=== PATIENT | female | born 1975 | race Caucasian/White ===

== ENCOUNTER 2017-04-07 13:45 | Emergency (ER) | payer SELFPAY ==
[2017-04-07] MEDS ORDERED: IBUPROFEN 600 MG TAB PO ONE (15:32)
[2017-04-07 15:39] LABS: % IMMATURE GRANULYOCYTES 0.6 % (0.0-1.1); ABSOLUTE IMMATURE GRANULOCYTES 0.09 10^3/uL (0.00-0.10); ADD DIFF? NO; ADD MORPH? NO; ADD SCAN? NO; ATYPICAL LYMPHOCYTE FLAG 0 (0-99); FRAGMENT RBC FLAG 0 (0-99); HEMATOCRIT 39.5 % (38.0-47.0); HEMOGLOBIN 13.4 g/dL (12.6-16.3); LEFT SHIFT FLG 0 (0-99); LIPEMIA HEMOLYSIS FLAG 90 (0-99); MEAN CELL HEMOGLOBIN 28.3 pg (27.9-34.1); MEAN CELL HEMOGLOBIN CONCENTR. 33.9 g/dL (32.4-36.7); MEAN CELL VOLUME 83.5 fL (81.5-99.8); PLATELET CLUMPS FLAG 10 (0-99); PLATELET COUNT 292 10^3/uL (150-400); RED BLOOD CELL COUNT 4.73 10^6/uL (4.18-5.33); RED CELL DISTRIBUTION WIDTH 14.9 % (11.5-15.2)
--- NOTE | 2017-04-07 15:46 | EDPHY ---
H & P Stated Complaint: PD found pt breaking into cars & not making sense. Danger to self. M1. Source: Patient Exam Limitations: No limitations - Personal History LMP (Females 10-55): Hysterectomy Current Tetanus/Diphtheria Vaccine: Unsure Current Tetanus Diphtheria and Acellular Pertussis (TDAP): Unsure - Medical/Surgical History Hx Asthma: No Hx Chronic Respiratory Disease: No Hx Diabetes: No Hx Cardiac Disease: No Hx Renal Disease: No Hx Cirrhosis: No Hx Alcoholism: No Hx HIV/AIDS: No Hx Splenectomy or Spleen Trauma: No Other PMH: anxiety, PTSD - Social History Smoking Status: Former smoker Time Seen by Provider: 04/07/17 15:11 HPI/ROS: HPI: This is a 41-year-old female presents with Chief Complaint: PD found pt breaking into cars & not making sense. Danger to self. M1. Location:psych Quality: M1 Hold Duration: Today Signs and Symptoms: Denies suicidal ideation, denies homicidal ideation, denies hallucinations Timing: Unknown Severity: Moderate Context: Patient presents via [facility] Police on M1 hold at 12:09 p.m. as officer was dispatched for a woman getting into cars that were not hers. When the police arrived on scene, the woman had no ID, she stated that her name was Shayy Gonzalez. Date of was 1975. She said she saw signs that told her to come to the area, which meant "through love." She admits to me using alcohol as well as well as multiple recreational drugs but will not disclose the exact names. She states that she has been on a binge for the last several weeks. She is unsure of the date or time. She reports that she has a history of posttraumatic stress disorder and major depression but has not been on any medications in a long time. She reports that 1 time she was on Prozac 80 mg and clonazepam 1 mg. She is originally from [facility]. Modifying Factors: Comment: ROS: see HPI Constitutional: No fever, no chills, no weight loss Eyes: No blurred vision Respiratory: No shortness of breath, no cough Cardiovascular: No chest pain Gastrointestinal: No nausea, no vomiting, no diarrhea Genitourinary: No dysuria Extremities: No myalgias Neurologic: No weakness, no numbness Skin: No rashes Hematologic: No bruising, no bleeding MEDICAL/SURGICAL/SOCIAL HISTORY: Medical history: PTSD, major depression. Surgical history: Cholecystectomy, laparoscopic hysterectomy Social history: Unemployed. CONSTITUTIONAL: Untidy, cooperative adult white woman awake and alert, no obvious distress HEENT: Atraumatic and normocephalic, PERRL, EOMI. Tympanic membranes clear. Oropharynx clear, no exudate and moist pink mucosa. Airway patent. No lymphadenopathy. No meningismus. Cardiovascular: Normal S1/S2, regular rate, regular rhythm, without murmur rub or gallop. PULMONARY/CHEST: Symmetrical and nontender. Clear to auscultation bilaterally. Good air movement. No accessory muscle usage. ABDOMEN: Soft, nondistended, nontender, no rebound, no guarding, no peritoneal signs, no masses or organomegaly. No CVAT. EXTREMITIES: 2/2 pulses, no deformities, no clubbing, no cyanosis or edema. NEUROLOGICAL: no focal neuro deficits. GCS 15. Patient has very poor short- term and long-term memory. SKIN: Warm and dry, no erythema. no rash. Good capillary refill. PSYCH: Poor eye contact, no flight of ideas, organized thought process, poor insight and judgment, no auditory and visual command hallucinations, no suicidal ideation with a plan, no homicidal ideation, not paranoid (Cassia Carter) Constitutional: Initial Vital Signs Temperature (C) 37.2 C 04/07/17 13:51 Heart Rate 132 H 04/07/17 13:51 Respiratory Rate 16 04/07/17 13:51 Blood Pressure 133/59 H 04/07/17 13:51 O2 Sat (%) 94 04/07/17 13:51 O2 Delivery Mode Room Air Allergies/Adverse Reactions: No Known Allergies Allergy (Unverified 04/07/17 13:50) Home Medications: Medication Instructions Recorded Klonopin 04/07/17 Prozac 40 mg 04/07/17 Medical Decision Making ED Course/Re-evaluation: urine, labs ordered 1209: M1 Hold 1630: labs reviewed and UDS + amphetamines. will need to hold for 12 hours and re-evaluate. End of shift signed out to Dr. Mckinley. (Cassia Carter) 10:30 p.m. we continue to await psychiatric evaluation. Care transferred to Dr. Paul Quinonez shift change. (Tera Mckinley) [id number]: Patient has been evaluated by mental health. She has, cooperative. She is not acutely psychotic. She was positive for amphetamine. She was seen evaluated by mental health [facility]. They have vacated her M1 hold. She does not meet inpatient psychiatric criteria. She is not suicidal. She does not want hurt herself or anybody else. She admits to a 4 day binge of methamphetamine. Patient is acting appropriately should be discharged from the emergency room. Return precautions have been given. (Paul Quinonez) Differential Diagnosis: Altered mental status including but not limited to hypoglycemia, infectious process, electrolyte abnormality, head injury and intoxicants. (Cassia Carter) - Data Points Laboratory Results: Laboratory Results 04/07/17 15:20 04/07/17 15:20 04/07/17 04/07/17 04/07/17 15:45 15:20 15:20 WBC RBC Hgb Hct MCV MCH MCHC RDW Plt Count MPV Neut % (Auto) Lymph % (Auto) [place] % (Auto) Eos % (Auto) Baso % (Auto) Nucleat RBC Rel Count Absolute Neuts (auto) Absolute Lymphs (auto) Absolute Monos (auto) Absolute Eos (auto) Absolute Basos (auto) Absolute Nucleated RBC Immature Gran % Immature Gran # Sodium 139 mEq/L mEq/L (134-144) Potassium 4.1 mEq/L mEq/L (3.5-5.2) Chloride 101 mEq/L mEq/L (97-110) Carbon Dioxide 17 mEq/l L mEq/l (22-31) Anion Gap 21 mEq/L H mEq/L (8-16) BUN 17 mg/dL mg/dL (7-23) Creatinine 0.9 mg/dL mg/dL (0.6-1.0) Estimated GFR > 60 Glucose 60 mg/dL L mg/dL (70-100) Calcium 10.7 mg/dL H mg/dL (8.5-10.4) Phosphorus 4.7 mg/dL H mg/dL (2.5-4.5) Beta HCG, Qual NEGATIVE Salicylates < 1.0 mg/dL L mg/dL (2.0-20.0) Urine Opiates Screen NEGATIVE (NEGATIVE) Acetaminophen < 10 mcg/mL L mcg/mL (10-30) Urine Barbiturates NEGATIVE (NEGATIVE) Ur Phencyclidine Scrn NEGATIVE (NEGATIVE) Ur Amphetamine Screen NON-NEGATIVE H (NEGATIVE) U Benzodiazepines Scrn NEGATIVE (NEGATIVE) Urine Cocaine Screen NEGATIVE (NEGATIVE) U Marijuana (THC) Screen NEGATIVE (NEGATIVE) Ethyl Alcohol < 10 mg/dL mg/dL (0-10) 04/07/17 15:20 WBC 15.00 10^3/uL H 10^3/uL (3.80-9.50) RBC 4.73 10^6/uL 10^6/uL (4.18-5.33) Hgb 13.4 g/dL g/dL (12.6-16.3) Hct 39.5 % % (38.0-47.0) MCV 83.5 fL fL (81.5-99.8) MCH 28.3 pg pg (27.9-34.1) MCHC 33.9 g/dL g/dL (32.4-36.7) RDW 14.9 % % (11.5-15.2) Plt Count 292 10^3/uL 10^3/uL (150-400) MPV 9.0 fL fL (8.7-11.7) Neut % (Auto) 87.4 % H % (39.3-74.2) Lymph % (Auto) 8.4 % L % (15.0-45.0) [place] % (Auto) 3.1 % L % (4.5-13.0) Eos % (Auto) 0.0 % L % (0.6-7.6) Baso % (Auto) 0.5 % % (0.3-1.7) Nucleat RBC Rel Count 0.0 % % (0.0-0.2) Absolute Neuts (auto) 13.10 10^3/uL H 10^3/uL (1.70-6.50) Absolute Lymphs (auto) 1.26 10^3/uL 10^3/uL (1.00-3.00) Absolute Monos (auto) 0.47 10^3/uL 10^3/uL (0.30-0.80) Absolute Eos (auto) 0.00 10^3/uL L 10^3/uL (0.03-0.40) Absolute Basos (auto) 0.08 10^3/uL 10^3/uL (0.02-0.10) Absolute Nucleated RBC 0.00 10^3/uL 10^3/uL (0-0.01) Immature Gran % 0.6 % % (0.0-1.1) Immature Gran # 0.09 10^3/uL 10^3/uL (0.00-0.10) Sodium Potassium Chloride Carbon Dioxide Anion Gap BUN Creatinine Estimated GFR Glucose Calcium Phosphorus Beta HCG, Qual Salicylates Urine Opiates Screen Acetaminophen Urine Barbiturates Ur Phencyclidine Scrn Ur Amphetamine Screen U Benzodiazepines Scrn Urine Cocaine Screen U Marijuana (THC) Screen Ethyl Alcohol Medications Given: Discontinued Medications Ibuprofen (Motrin) 600 mg PO EDNOW ONE Stop: 04/07/17 15:33 Last Admin: 04/07/17 15:44 Dose: 600 mg Departure - Departure Disposition: Home, Routine, Self-Care Clinical Impression: Amphetamine use disorder, moderate, Delirium Instructions: Methamphetamine Abuse (ED) Referrals: NONE *PRIMARY CARE P,. [Primary Care Provider] - As per Instructions
[2017-04-07 15:48] LABS: ANION GAP 21 mEq/L (8-16); CALCIUM 10.7 mg/dL (8.5-10.4); CARBON DIOXIDE 17 mEq/l (22-31); CHLORIDE 101 mEq/L (97-110); CREATININE 0.9 mg/dL (0.6-1.0); ETHANOL SERUM < 10 mg/dL (0-10); GLOMERULAR FILTRATION RATE > 60; GLUCOSE 60 mg/dL (70-100); POTASSIUM 4.1 mEq/L (3.5-5.2); SALICYLATE < 1.0 mg/dL (2.0-20.0); SODIUM 139 mEq/L (134-144)
[2017-04-08 00:35] VITALS: TEMP 98.6
[2017-04-08 03:40] VITALS: BP 124/69; PULSE 98; RESP 18; O2SAT 96
== END 2017-04-08 03:50 | disposition home or self-care (01) ==
DX: F15.921 Other stimulant use, unspecified with intoxication delirium (principal); Z87.891 Personal history of nicotine dependence
CPT/HCPCS: 80305; G0480